=== PATIENT | male | born 1990 | race Caucasian/White ===

== ENCOUNTER 2019-11-02 13:03 | Outpatient (CLI) | payer BC ==
--- NOTE | 2019-11-02 14:07 | RAD ---
TWO VIEWS LUMBAR SPINE: 11/02/19 HISTORY: Lumbar spine burst fracture. COMPARISON: None. FINDINGS: Mild compression fracture at L3 with mild loss of vertebral body height. There does appear to be vert ical fracture lucency. Mild superior end plate injury at L4. IMPRESSION: L3 and L4 fractures. POS: [facility]
== END 2019-11-02 13:04 | disposition home or self-care (01) ==
LOC: TBSIIMAG 13:03
PROVIDERS: ATTEND Neurological Surgery
DX: S32.039A Unspecified fracture of third lumbar vertebra, initial encounter for closed fracture (principal); S32.049A Unspecified fracture of fourth lumbar vertebra, initial encounter for closed fracture
CPT/HCPCS: 72100

== ENCOUNTER 2019-11-24 14:17 | Outpatient (CLI) | payer BC ==
--- NOTE | 2019-11-24 14:44 | RAD ---
LUMBAR SPINE SERIES 2 VIEWS: Date: 11/24/2019 HISTORY: Follow-up of fracture. COMPARISON: 11/02/2019 exam. FINDINGS: Compression changes involving the L3 vertebral body are stable. Degenerative osteophytes are seen zenia ng the course of the spine. Marked disc narrowing at L2-3. Degenerative facet changes. IMPRESSION: Stable compression changes of L3. POS: [facility]
== END 2019-11-24 14:18 | disposition home or self-care (01) ==
LOC: TBSIIMAG 14:17
PROVIDERS: ATTEND Neurological Surgery
DX: S22.009D Unspecified fracture of unspecified thoracic vertebra, subsequent encounter for fracture with routine healing (principal); S32.009D Unspecified fracture of unspecified lumbar vertebra, subsequent encounter for fracture with routine healing
CPT/HCPCS: 72100